=== PATIENT | female | born 1990 | race Caucasian/White ===

== ENCOUNTER 2016-10-29 14:14 | Emergency (ER) | payer SELFPAY ==
[~2016-10-29] VITALS: Ht 157.5 cm; Wt 59.1 kg
[~2016-10-29 14:14] MED LIST: CEPHALEXIN500 M1 PO; NORCO 325 MG-51 TAB PO; TRI-PREVIFEM1 TA1 PO
[2016-10-29 14:22] VITALS: BP 157/104; TEMP 98.2
[2016-10-29] MEDS ORDERED: BACTRIM DS 8001 TAB PO (15:01)
[2016-10-29] MEDS ORDERED: NORCO 325 MG-51 TAB PO (15:01)
[2016-10-29 15:20] VITALS: PULSE 108
[2017-03-08] MEDS ORDERED: NORCO 325 MG-51 TAB PO (22:33)
== END 2016-10-29 15:22 | disposition home or self-care (01) ==
LOC: COL.ER 14:14
DX: S61.012A Laceration without foreign body of left thumb without damage to nail, initial encounter (principal); W26.0XXA Contact with knife, initial encounter; Y93.G1 Activity, food preparation and clean up

== ENCOUNTER 2017-02-05 11:24 | Emergency (ER) | payer SELFPAY ==
[~2017-02-05] VITALS: Ht 157.5 cm; Wt 54.5 kg
[~2017-02-05 11:24] MED LIST changes: +BACTRIM DS 8001 TAB PO
[2017-02-05 11:26] VITALS: BP 125/86; TEMP 99.2
[2017-02-05 12:33] VITALS: PULSE 96
[2017-03-08] MEDS ORDERED: NORCO 325 MG-51 TAB PO (22:33)
== END 2017-02-05 12:34 | disposition home or self-care (01) ==
LOC: COL.ER 11:24
DX: T78.40XA Allergy, unspecified, initial encounter (principal); F17.210 Nicotine dependence, cigarettes, uncomplicated; Z98.890 Other specified postprocedural states
CPT/HCPCS: J1100

== ENCOUNTER 2017-02-19 17:28 | Emergency (ER) | payer SELFPAY ==
[~2017-02-19] VITALS: Ht 157.5 cm; Wt 54.5 kg
[2017-02-19 17:33] VITALS: TEMP 98.8
[2017-02-19] MEDS ORDERED: NORCO 325 MG-7.1 TAB PO (20:04)
[2017-02-19] MEDS ORDERED: DOXYCYCLINE 10100 MG PO (20:04)
[2017-02-19 21:57] VITALS: BP 133/88; PULSE 103
[2017-03-08] MEDS ORDERED: NORCO 325 MG-51 TAB PO (22:33)
== END 2017-02-19 20:30 | disposition home or self-care (01) ==
LOC: COL.ER 17:28
DX: L08.9 Local infection of the skin and subcutaneous tissue, unspecified (principal); S70.362A Insect bite (nonvenomous), left thigh, initial encounter; W57.XXXA Bitten or stung by nonvenomous insect and other nonvenomous arthropods, initial encounter

== ENCOUNTER → 2017-03-08 | Emergency (ER) | payer OTHER ==
[~2017-03-08] VITALS: Ht 157.5 cm; Wt 54.5 kg
[~2017-03-08] MED LIST changes: +DOXYCYCLINE 10100 MG PO; +NORCO 325 MG-7.1 TAB PO
[2017-03-08 22:07] VITALS: BP 140/93; TEMP 98
[2017-03-08 22:40] VITALS: PULSE 105
== END ==
LOC: COL.ER 22:03
DX: T63.331D Toxic effect of venom of brown recluse spider, accidental (unintentional), subsequent encounter (principal); F17.210 Nicotine dependence, cigarettes, uncomplicated; Z98.818 Other dental procedure status; Z90.89 Acquired absence of other organs